=== PATIENT | female | born 1975 | race Caucasian/White ===

== ENCOUNTER 2017-07-01 15:39 | Emergency (ER) | payer MEDICAID, OTHER ==
[~2017-07-01] VITALS: Ht 152.4 cm; Wt 51.0 kg
[~2017-07-01 15:39] MED LIST: GABA100C2 PO; MELO7.5T PO; NOVONP2 SQ; NOVORP2 SQ
[2017-07-01 15:51] VITALS: BP 152/77; PULSE 90; RESP 16; TEMP 98.2; O2SAT 99
[2017-07-01] MEDS ORDERED: NOVORP2 SQ (16:13)
[2017-07-01] MEDS ORDERED: NOVONP2 SQ (16:13)
--- NOTE | 2017-07-01 16:13 | PD ---
HPI Chief Complaint: Pain: Acute or Chronic Time Seen by Provider: 16:00 Travel History International Travel<30 days: No Contact w/Intl Traveler<30days: No Traveled to known affect area: No History of Present Illness HPI This 42-year-old female she started having pain in her collarbone about a month ago. Since then the pain has spread at this involves the trapezius area on the right side to the shoulder and even down the arm a little bit. Been going on for about a month. She has been taking ibuprofen without any response. She has a history of rheumatoid arthritis but is on no medication. She has a history of type 1 diabetes for 32 years. She has had carpal tunnel surgery on the left hand. The pain is quite severe seems worse at night. She is right- handed [facility] Past Medical History Arthritis: Yes (RHEUMATOID ARTHRITIS) Autoimmune Disease: Yes (RHEUMATOID ARTHRITIS) Blood Disorders: No Cancer: No Cardiovascular Problems: No Chemotherapy: No Diabetes: Yes (TYPE 1) Diminished Hearing: No Endocrine: Yes Fibromyalgia: Yes Genitourinary: Yes Immune Disorder: No Kidney Stones: Yes Musculoskeletal: Yes Neurologic: No Psychiatric: No Reproductive: No Respiratory: No Radiation Therapy: No Renal Failure: No Thyroid Disease: No ?: Not : 2 Para: 2 Past Surgical History Abdominal Surgery: Yes (2 C-SECTIONS 06/12/97 & 05/31/99) AICD: No Arteriovenous Shunt: No Cardiac Surgery: No Section: Yes Ear Surgery: No Endocrine Surgery: No Eye Surgery: Yes (LASER) Genitourinary Surgery: No Gynecologic Surgery: No Insulin Pump: No Joint Replacement: No Oral Surgery: No Pacemaker: No Thoracic Surgery: No Other Surgery: Yes (CARPAL TUNNEL 04/14/13) Social History Alcohol Use: Yes (OCC) Tobacco Use: Yes (03/03 PPD) Substance Use: No Allergies-Medications (Allergen,Severity, Reaction): Coded Allergies: bupropion (Unverified Allergy, Severe, 07/01/17) Reported Meds & Prescriptions Reported Meds & Active Scripts Active Reported Novolin R Inj (Insulin Human Regular) 1,000 Unit/10 Ml Vial 10 Units SQ BID Novolin N Inj (Insulin Human NPH) 1,000 Unit/10 Ml Vial 15 Units SQ BID Review of Systems General / Constitutional: No: Fever, Chills Eyes: No: Diploplia HENT: No: Headaches, Vertigo Cardiovascular: Positive: Chest Pain or Discomfort Respiratory: No: Cough, Shortness of Breath Gastrointestinal: No: Nausea, Vomiting Genitourinary: No: Urgency, Frequency Musculoskeletal: Positive: Myalgias, Pain Skin: No Rash Neurologic: No: Weakness, Dizziness Psychiatric: No: Anxiety, Depression Endocrine: No: Heat Intolerance Hematologic/Lymphatic: No: Easy Bruising Physical Exam Narrative GENERAL: Well-developed female SKIN: Focused skin assessment warm/dry. HEAD: Atraumatic. Normocephalic. EYES: Pupils equal and round. No scleral icterus. No injection or drainage. ENT: No nasal bleeding or discharge. Mucous membranes pink and moist. NECK: Trachea midline. No JVD. Pain is aggravated somewhat by movement of the neck the neck is not stiff CARDIOVASCULAR: Regular rate and rhythm. No murmur appreciated. RESPIRATORY: No accessory muscle use. Clear to auscultation. Breath sounds equal bilaterally. GASTROINTESTINAL: Abdomen soft, non-tender, nondistended. Hepatic and splenic margins not palpable. MUSCULOSKELETAL: No obvious deformities. No clubbing. No cyanosis. No edema. NEUROLOGICAL: Awake and alert. No obvious cranial nerve deficits. Right side marketing support coordinator is slightly weaker than the left. Sensation appears symmetric normal speech. PSYCHIATRIC: Appropriate mood and affect; insight and judgment normal. Data Data Last Documented VS Vital Signs Date Time Temp Pulse Resp B/P (MAP) Pulse Ox O2 Delivery O2 Flow Rate FiO2 07/01/17 15:51 98.2 90 16 152/77 (102) [address] Cerv Spine W/O Contrast (07/01/17 16:09) Chest, Single Ap (07/01/17 16:09) [facility] Medical Decision Making Medical Screen Exam Complete: Yes Emergency Medical Condition: Yes Medical Record Reviewed: Yes Differential Diagnosis Differential includes radiculopathy, neuropathy, space-occupying lesion, Narrative Course Chest x-ray is negative. I believe this pain is secondary to radiculopathy. I will prescribe gabapentin and Flexeril Diagnosis Primary Impression: Radiculopathy Scripts Cyclobenzaprine (Flexeril) 10 Mg Tab 10 MG PO TID for Muscle Spasm, #20 TAB 0 Refills Prov: Anastacio Emmanuel MD 07/01/17 Gabapentin (Gabapentin) 300 Mg Cap 300 MG PO BID for 15 Days, #30 CAP 0 Refills Prov: Anastacio Emmanuel MD 07/01/17 Disposition: 01 DISCHARGE HOME Condition: Stable Anastacio Emmanuel MD July 01, 2017 16:13
--- NOTE | 2017-07-01 16:42 | RADRPT ---
EXAM DATE/TIME: 07/01/2017 16:10 [facility] COMPARISON: No previous studies available for comparison. INDICATIONS : Right sided chest pain for 2 days MEDICAL HISTORY : None. SURGICAL HISTORY : None. ENCOUNTER: Initial ACUITY: 2 days PAIN SCORE: 5/10 LOCATION: Right chest FINDINGS: A single view of the chest demonstrates the lungs to be symmetrically aerated without evidence of mas s, infiltrate or effusion. The cardiomediastinal contours are unremarkable. Osseous structures are intact. CONCLUSION: 1. No acute cardiopulmonary disease. Prudencio Enamorado MD on July 01, 2017 at 16:37 Board Certified Radiologist. This report was verified electronically.
--- NOTE | 2017-07-01 16:47 | RADRPT ---
EXAM DATE/TIME: 07/01/2017 16:14 [facility] COMPARISON: No previous studies available for comparison. INDICATIONS : Right sided neck and arm pain. RADIATION DOSE: 24.80 CTDIvol (mGy) MEDICAL HISTORY : Diabetes mellitus type 1. SURGICAL HISTORY : None. ENCOUNTER: Initial ACUITY: 1 week PAIN SCALE: 7/10 LOCATION: Right neck TECHNIQUE: Volumetric scanning of the cervical spine was performed. Multiplanar reconstructions in the sagittal, coronal and oblique axial planes were performed. Using automated exposure control and adjustment o f the mA and/or kV according to patient size, radiation dose was kept as low as reasonably achievable to obtain optimal diagnostic quality images. DICOM format image data is available electronically f or review and comparison. FINDINGS: VERTEBRAE: Normal vertebral body height. ALIGNMENT: No evidence of subluxation. Additional findings: Visualized lung apices demonstrate minimal paraseptal emphysema. Therapy is unremarkable by CT. No si gnificant adenopathy. C2-C3: The bony spinal canal is normal in size. No evidence of disc bulge or herniation. The neural forami na are bilaterally patent. C3-C4: The bony spinal canal is normal in size. No evidence of disc bulge or herniation. The neural forami na are bilaterally patent. C4-C5: The bony spinal canal is normal in size. No evidence of disc bulge or herniation. The neural forami na are bilaterally patent. C5-C6: Minimal diffuse disc bulge. Bony central canal and neural foramina are patent. C6-C7: Mild diffuse disc bulge with bilateral uncovertebral osteophytes. Mild left-sided facet arthropathy. Bony central canal and neural foramina are patent. C7-T1: The bony spinal canal is normal in size. No evidence of disc bulge or herniation. The neural forami na are bilaterally patent. CONCLUSION: 1. Mild degenerative spondylosis of the lower cervical spine most prominent at C6-7 without significa nt bony central canal or neuroforaminal stenosis. 2. Minimal biapical paraseptal emphysema. Prudencio Enamorado MD on July 01, 2017 at 16:41 Board Certified Radiologist. This report was verified electronically.
[2017-07-01] MEDS ORDERED: CYCL10TA PO (16:59)
[2017-07-01] MEDS ORDERED: GABA300C5 PO (16:59)
[2017-07-01 17:11] VITALS: BP 111/78
== END 2017-07-01 17:22 | disposition home or self-care (01) ==
LOC: PHED 15:39
DX: M54.10 Radiculopathy, site unspecified (principal); M06.9 Rheumatoid arthritis, unspecified; E10.9 Type 1 diabetes mellitus without complications; M79.7 Fibromyalgia
CPT/HCPCS: 71045; 72125; 99284